=== PATIENT | male | born 1975 | race American Indian/Alaskan Native ===

== ENCOUNTER 2017-08-02 18:18 | Emergency (ER) | payer OTHER ==
[2017-08-02 18:27] VITALS: BP 144/84
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
[2017-08-02] MEDS ORDERED: NORCO 5/325 PO ONE (23:07)
[2017-08-02] MEDS ORDERED: FLEXERIL PO ONE (23:07)
== END 2017-08-02 23:40 | disposition home or self-care (01) ==
LOC: ED 18:18
DX: M19.91 Primary osteoarthritis, unspecified site (principal); M54.5 Low back pain; M25.461 Effusion, right knee; I10 Essential (primary) hypertension; F17.200 Nicotine dependence, unspecified, uncomplicated
CPT/HCPCS: 72100; 99283

== ENCOUNTER 2018-06-08 07:49 | Emergency (ER) | payer BC, OTHER ==
[2018-06-08 08:03] VITALS: BP 139/78
[2018-06-08] MEDS ORDERED: TORADOL IM ONE (08:48)
--- NOTE | 2018-06-08 09:28 | XRay Report ---
RIGHT SHOULDER, 3 VIEWS: HISTORY: right shoulder pain. Normal bone mineralization. No acute osseous injury or joint pathology is detected. The soft tissues are unremarkable. IMPRESSION: Right shoulder within normal limits.
--- NOTE | 2018-06-08 09:29 | XRay Report ---
RIGHT WRIST, 4 VIEWS: History: wrist pain, injury. Normal bone mineralization. Chronic healed deformity of the distal radius and ulna is suspected, correlate with history. There are moderate osteoarthritic changes at the radiocarpal joint and radial ulnar articulation. The carpal bones are in appropriate relationship. No evidence for ligamentous injury or bony erosions. Mild soft tissue swelling is noted. IMPRESSION: Chronic, healed fractures and moderate posttraumatic degenerative changes are suspected as described. No acute process is noted.
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
== END 2018-06-08 09:50 | disposition home or self-care (01) ==
LOC: ED 07:49
DX: S49.91XA Unspecified injury of right shoulder and upper arm, initial encounter (principal); S63.501A Unspecified sprain of right wrist, initial encounter; I10 Essential (primary) hypertension; F17.200 Nicotine dependence, unspecified, uncomplicated; W01.190A Fall on same level from slipping, tripping and stumbling with subsequent striking against furniture, initial encounter; Y93.89 Activity, other specified; Y92.89 Other specified places as the place of occurrence of the external cause; Y99.8 Other external cause status
CPT/HCPCS: 73030; 73110; 96372; 99283; J1885